=== PATIENT | male | born 1965 | race Caucasian/White ===

== ENCOUNTER 2023-01-01 12:08 | Emergency (ER) | payer MEDICAID ==
[~2023-01-01] VITALS: Ht 170.2 cm; Wt 78.5 kg
[2023-01-01 12:17] VITALS: BP 149/88; TEMP 98.7
[2023-01-01] MEDS ORDERED: PERM60CR4 TP (12:32)
[2023-01-01 12:36] VITALS: O2SAT 98
== END 2023-01-01 12:37 | disposition home or self-care (01) ==
LOC: ER 12:17
DX: L30.9 Dermatitis, unspecified (principal); E11.9 Type 2 diabetes mellitus without complications; Z60.2 Problems related to living alone